=== PATIENT | male | born 1990 | race Hispanic/Latino ===

== ENCOUNTER 2025-02-14 14:33 | Emergency (ER) | payer MEDICARE ==
[~2025-02-14] VITALS: Ht 175.3 cm; Wt 108.9 kg
[2025-02-14 14:54] VITALS: BP 126/84; PULSE 94; RESP 20; TEMP 98.4
--- NOTE | 2025-02-14 16:12 | ERN ---
ED Note History of Present Illness Stated Complaint: ABDOMINAL PAIN Chief Complaint: Abdominal Pain Time Seen by MD: 14:36 Time Seen by Midlevel: 14:36 Dictation: The patient is a 34-year-old male with a history of hypertension, pancreatitis who presents to the emergency department with complaints of epigastric onset today associated with nausea. Patient denies any constipation diarrhea or fevers. Allergies: Coded Allergies: hydromorphone (Unverified Allergy, Intermediate, 02/14/25) morphine (Unverified Allergy, Unknown, 02/14/25) Past Medical History Past Medical History: Hypertension, Pancreatitis Surgical History: None RN Note Reviewed/Agreed w/PFSH: Yes Review of System Dictation Constitutional: Negative for fever,chills, and weight loss Eyes: Negative for injury, pain,redness, and discharge ENT: Negative for injury,pain or swelling Cardiovascular: Negative for chest pain, palpitations, and edema Respiratory: Negative for shortness of breath, cough, and wheezing, Abdomen/GI: Negative for vomiting, diarrhea, and constipation positive for abdominal pain, nausea Back: Negative for injury and pain : Negative for injury, bleeding and discharge MS/Extremity: Negative for injury and deformity Skin: Negative for rash, and discoloration Neuro: Negative for headache, weakness, numbness, tingling, and seizure Psych: Negative for suicide ideation, homicidal ideation, and hallucinations Initial Vital Sign VS Vital Signs Date Time Temp Pulse Resp B/P (MAP) Pulse Ox O2 Delivery O2 Flow Rate FiO2 02/14/25 14:54 98.4 94 20 126/84 99 Room Air 0 Physical Exam Dictation Vital Signs reviewed General Appearance: Alert, oriented x 3, no acute distress, well developed, nourished. Head and Face: non-traumatic. Eyes: PERRL, pink conjunctivas, eyelid no trauma, anterior chamber with arcus senilis. Ears: Pinnas intact and no signs of trauma or erythema ear canals clear and no discharge TM no erythema Nose: No discharge, no bleeding. Oropharynx: Mouth normal, tongue pink. pharynx clear,no erythema, tonsils no exudates, no abscesses noted, mucous membrane moist Neck: Supple, non-tender, no thyromegaly, no masses, no JVD, no bruits Breast:Deferred Chest:No tenderness, no crepitus, no paradoxical movement, no retractions Lungs:Clear, well-ventilated, symmetric, no rales, no wheezing, no rhonchi, no stridor, good breath sounds bilaterally Heart: Regular rate, regular rhythm, no murmur, no gallops Vascular: no peripheral edema, Abdomen: Soft, positive bowel sounds, nondistended, no guarding, nontender, no rebound, no masses no hepatomegaly, no splenomegaly, no Sparks's sign, no hernias. Rectal: Deferred Genital: Deferred Neurological: Normal speech, motor function intact, sensory function intact Musculoskeletal: Neck nontender, full range of motion, back nontender, full range of motion, Extremities: nontender, full range of motion Skin: Color pink, dry, no turgor, no rash, no lacerations, no abrasions, no contusions. Lymphatic: Deferred Results (Laboratory/Radiology) Labs Reviewed?: Yes ED Course ED Course Vital Signs Date Time Temp Pulse Resp B/P (MAP) Pulse Ox O2 Delivery O2 Flow Rate FiO2 02/14/25 14:54 98.4 94 20 126/84 99 Room Air 0 Medical Decision Making MDM The patient is a 34-year-old male with a history of hypertension, pancreatitis who presents to the emergency department with complaints of epigastric onset today associated with nausea. Patient denies any constipation diarrhea or fevers. Differential diagnosis: Gastroenteritis, gastritis, dehydration Patient reported that his pain was better and did not want to be evaluated any further. Risks and benefits discussed with the patient. Patient left AMA. DX & DISP Disposition: AMA Departure Condition: Against Medical Advice Referrals: SELF,REFERRAL (PCP) I have reviewed the case, and I agree with, Diagnosis and Plan MARIS PRIEST Feb 14, 2025 16:12 MARIA DE JESUS GEORGE DO Feb 16, 2025 10:28
== END 2025-02-14 15:13 | disposition left against medical advice (07) ==
LOC: EDH 14:33
DX: R11.0 Nausea (principal); R10.9 Unspecified abdominal pain; I10 Essential (primary) hypertension; Z88.5 Allergy status to narcotic agent
CPT/HCPCS: 99281

== ENCOUNTER 2025-02-24 17:16 | Emergency (ER) | payer MEDICARE ==
[~2025-02-24] VITALS: Ht 175.3 cm; Wt 113.4 kg
--- NOTE | 2025-02-24 17:35 | EKG ---
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
[2025-02-24 17:51] LABS: BASOPHILS # (AUTO) 0.05 K/uL (0.00-0.20); BASOPHILS % (AUTO) 0.9 % (0.0-5.0); EOSINOPHILS # (AUTO) 0.15 K/uL (0.00-0.70); EOSINOPHILS % (AUTO) 2.8 % (0.0-8.0); HEMATOCRIT 45.3 % (42-54); IMMATURE GRANULOCYTE ABSOLUTE 0.04 K/uL (0-1); LYMPHOCYTES # (AUTO) 1.3 K/uL (1.0-4.8); LYMPHOCYTES % (AUTO) 24.3 % (21.0-51.0); MEAN CORPUSCULAR HGB CONC 34.7 g/dL (32.0-36.0); MEAN CORPUSCULAR VOLUME 92.4 fL (79-99); MONOCYTES # (AUTO) 0.6 K/uL (0.1-1.0); MONOCYTES % (AUTO) 10.7 % (3.0-13.0); NEUTROPHILS # (AUTO) 3.3 K/uL (1.8-7.7); NEUTROPHILS % (AUTO) 60.6 % (40.0-77.0); PLATELET COUNT (AUTO) 184 K/uL (130-400); RED CELL DISTRIBUTION WIDTH 12.2 % (11.0-15.5); WHITE BLOOD COUNT (AUTO) 5.4 K/uL (4.8-10.8)
[2025-02-24 18:07] LABS: ALBUMIN 3.9 g/dL (3.5-5.0); BILIRUBIN,DIRECT 0.1 mg/dL (0.0-0.3); BILIRUBIN,TOTAL 0.6 mg/dL (0.2-1.0); POTASSIUM 3.9 mmol/L (3.5-5.1); TOTAL PROTEIN, SERUM 7.1 g/dL (6.0-8.3)
[2025-02-24 18:11] VITALS: BP 141/79; PULSE 78; RESP 18; TEMP 98.3; O2SAT 99
--- NOTE | 2025-02-24 18:24 | ERN ---
General Chief Complaint: Abdominal Pain Stated Complaint: ABD PAIN Time Seen by MD: 17:17 Time Seen by Midlevel: 17:17 Source: patient History of Present Illness Initial Comments Is a 34-year-old male with a past medical history of pancreatitis presenting to the emergency department with midepigastric abdominal pain. Patient states the pain started earlier today. He was an EGD scheduled next week but wanted his lipase level checked because he was concerned he may have pancreatitis at this time. Denies any nausea, vomiting, diarrhea, fever, chills, chest pain, or any other symptoms at this time. Allergies: Coded Allergies: hydromorphone (Unverified Allergy, Intermediate, 02/14/25) iodine (Unverified Allergy, Unknown, 02/24/25) morphine (Unverified Allergy, Unknown, 02/14/25) Past Medical History Past Medical History: Hypertension Medical History Other: pancreatitis Past Surgical History: Cholecystectomy ROS Dictation CONSTITUTIONAL: Negative except for HPI HEAD/FACE: Negative except for HPI EENT: Negative except for HPI RESPIRATORY: Negative except for HPI GASTROINTESTINAL/ABDOMINAL: Negative except for HPI GENITOURINARY: Negative except for HPI MUSCULOSKELETAL: Negative except for HPI INTEGUMENTARY: Negative except for HPI NEUROLOGICAL/PSYCH: Negative except for HPI HEMATOLOGIC/LYMPHATIC: Negative except for HPI All Systems Negative, Except as noted above. 13 point review of systems assessed and all negative except for above. Physical Exam Physical Exam Dictation Vital Signs reviewed General Appearance: Alert, oriented x 3, no acute distress, well developed, nourished. Head and Face: non-traumatic. Eyes: PERRL, pink conjunctivas, eyelid no trauma, anterior chamber with arcus senilis. Ears: Pinnas intact and no signs of trauma or erythema ear canals clear and no discharge TM no erythema Nose: No discharge, no bleeding. Oropharynx: Mouth normal, tongue pink, pharynx clear,no erythema, tonsils no exudates, no abscesses noted, mucous membrane moist Neck: Supple, non-tender, no thyromegaly, no masses, no JVD, no bruits Breast:Deferred Chest:No tenderness, no crepitus, no paradoxical movement, no retractions Lungs:Clear, well-ventilated, symmetric, no rales, no wheezing, no rhonchi, no stridor, good breath sounds bilaterally Heart: Regular rate, regular rhythm, no murmur, no gallops Vascular: no peripheral edema, Abdomen: Soft, positive bowel sounds, nondistended, no guarding, Midepigastric abdominal tenderness, no rebound, no masses no hepatomegaly, no splenomegaly, no Sparks's sign, no hernias. Rectal: Deferred Genital: Deferred Neurological: Normal speech, motor function intact, sensory function intact Musculoskeletal: Neck nontender, full range of motion, back nontender, full range of motion, Extremities: nontender, full range of motion Skin: Color pink, dry, no turgor, no rash, no lacerations, no abrasions, no contusions. Lymphatic: Deferred Results Laboratory and Microbiology Lab and Micro Result Laboratory Tests Test 02/24/25 17:44 White Blood Count 5.4 K/uL (4.8-10.8) Red Blood Count 4.90 MIL/uL (4.50-6.20) Hemoglobin 15.7 g/dL (14.0-18.0) Hematocrit 45.3 % (42-54) Mean Corpuscular Volume 92.4 fL (79-99) Mean Corpuscular Hemoglobin 32.0 pg (27.0-33.0) Mean Corpuscular Hemoglobin Concent 34.7 g/dL (32.0-36.0) Red Cell Distribution Width 12.2 % (11.0-15.5) Platelet Count 184 K/uL (130-400) Mean Platelet Volume 10.9 fL (7.5-10.5) H Immature Granulocyte % (Auto) 0.7 % (0-1) Neutrophils (%) (Auto) 60.6 % (40.0-77.0) Lymphocytes (%) (Auto) 24.3 % (21.0-51.0) Monocytes (%) (Auto) 10.7 % (3.0-13.0) Eosinophils (%) (Auto) 2.8 % (0.0-8.0) Basophils (%) (Auto) 0.9 % (0.0-5.0) Neutrophils # (Auto) 3.3 K/uL (1.8-7.7) Lymphocytes # (Auto) 1.3 K/uL (1.0-4.8) Monocytes # (Auto) 0.6 K/uL (0.1-1.0) Eosinophils # (Auto) 0.15 K/uL (0.00-0.70) Basophils # (Auto) 0.05 K/uL (0.00-0.20) Absolute Immature Granulocyte (auto 0.04 K/uL (0-1) Nucleated Red Blood Cells 0.0 % (0.0-0.19) Sodium Level 148 mmol/L (136-145) H Potassium Level 3.9 mmol/L (3.5-5.1) Chloride Level 110 mmol/L (101-111) Carbon Dioxide Level 29 mmol/L (21-32) Blood Urea Nitrogen 15 mg/dL (7-18) Creatinine 1.0 mg/dL (0.5-1.3) Glomerular Filtration Rate Calc 100 mL/min (>90) Random Glucose 99 mg/dL (70-105) Total Calcium 8.5 mg/dL (8.5-10.1) Total Bilirubin 0.6 mg/dL (0.2-1.0) Direct Bilirubin 0.1 mg/dL (0.0-0.3) Aspartate Amino Transf (AST/SGOT) 23 U/L (10-37) Alanine Aminotransferase (ALT/SGPT) 38 U/L (12-78) Alkaline Phosphatase 110 U/L (50-136) Troponin I High Sensitivity 6 ng/L (4-75) Total Protein 7.1 g/dL (6.0-8.3) Albumin 3.9 g/dL (3.5-5.0) Triglycerides Level 136 mg/dL (30-200) Lipase 111 U/L (16-77) H Labs Reviewed?: Yes MDM MDM: Is a 34-year-old male with a past medical history of pancreatitis presenting to the emergency department with midepigastric abdominal pain. Patient states the pain started earlier today. He was an EGD scheduled next week but wanted his lipase level checked because he was concerned he may have pancreatitis at this time. Denies any nausea, vomiting, diarrhea, fever, chills, chest pain, or any other symptoms at this time. On physical examination patient has mild epigastric abdominal tenderness with no rebound or guarding. Initial vital signs are stable. Abdominal workup was initiated which reveals no leukocytosis. Lipase level was 111 which is stable. Triglycerides are normal. No need for advanced imaging at this time. Labs are unremarkable. Patient will be discharged home with outpatient follow up. Return precautions discussed Differential diagnosis: Pancreatitis, acute cholecystitis, dehydration, electrolyte abnormality There are no social concerns with this patient. Prescription drug management Prescriptions will include: None Medical management and examination interpretation discussions were had by me with other qualified healthcare professionals as indicated for the patient's care. ED Course Orders Procedure Category Date Status Time Cbc With Differential LAB 02/24/25 Complete 17:25 Basic Metabolic Panel LAB 02/24/25 Complete 17:25 Hepatic Function Panel LAB 02/24/25 Complete 17:25 Lipase LAB 02/24/25 Complete 17:25 Triglycerides LAB 02/24/25 Complete 17:25 12 Lead Ekg Tracing- EKG 02/24/25 Complete Technical 17:29 Troponin I High LAB 02/24/25 Complete Sensitivity 17:29 Vital Signs Date Time Temp Pulse Resp B/P (MAP) Pulse Ox O2 Delivery O2 Flow Rate FiO2 02/24/25 18:11 98.2 78 18 141/79 99 Room Air* 0 21 02/24/25 17:25 98.2 80 18 151/84 98 Room Air 0 DX & DISP Disposition: Discharge Departure Impression: Primary Impression: Epigastric abdominal pain Condition: Stable Additional Instructions: Your blood work today is unremarkable. Your lipase level is 111 which is stable. Please follow up with your GI specialist for outpatient EGD. Referrals: BRIT WEBER MD (PCP) Time of Disposition: 18:23 I have reviewed the case, and I agree with, Diagnosis and Plan I performed the substantive portion of the visit. I have reviewed and personally made and approve the management plan that is documented in the note by myself or the KHAI. I acknowledge for responsibility for the patient's management plan. RAYNE COLUNGA Feb 24, 2025 18:24 MARIA DE JESUS GEORGE DO Feb 25, 2025 07:37
== END 2025-02-24 18:31 | disposition home or self-care (01) ==
LOC: EDH 17:16
DX: R10.13 Epigastric pain (principal); I10 Essential (primary) hypertension; Z88.5 Allergy status to narcotic agent; Z88.8 Allergy status to other drugs, medicaments and biological substances; Z90.49 Acquired absence of other specified parts of digestive tract; Z91.041 Radiographic dye allergy status
CPT/HCPCS: 36415; 80048; 80076; 83690; 84478; 84484; 85025; 93005; 99284

== ENCOUNTER 2025-04-07 17:01 | Emergency (ER) | payer MEDICARE ==
[~2025-04-07] VITALS: Ht 175.3 cm; Wt 113.4 kg
--- NOTE | 2025-04-07 17:11 | ERN ---
General Chief Complaint: Shortness of Breath Stated Complaint: SENT BY Time Seen by MD: 17:02 Time Seen by Midlevel: 17:02 Source: patient History of Present Illness Initial Comments Patient is a 34-year-old male with a past medical history of hypertension on lisinopril, and pancreatitis presenting to the emergency department for evaluation of a persistent cough. The patient was sent by his primary care doctor who saw him earlier today and sent him to rule out pneumonia. The p atient reports an increasing cough for the last week. Denies any fever, chills, or any other symptoms at this time. He does report being a smoker and states he recently took up smoking and smokes a proximally 2-3 cigarettes a day. Allergies: Coded Allergies: hydromorphone (Unverified Allergy, Intermediate, 02/14/25) iodine (Unverified Allergy, Unknown, 02/24/25) morphine (Unverified Allergy, Unknown, 02/14/25) Past Medical History Past Medical History: Hypertension, Pancreatitis Medical History Other: pancreatitis Past Surgical History: Cholecystectomy ROS Dictation CONSTITUTIONAL: Negative except for HPI HEAD/FACE: Negative except for HPI EENT: Negative except for HPI RESPIRATORY: Negative except for HPI GASTROINTESTINAL/ABDOMINAL: Negative except for HPI GENITOURINARY: Negative except for HPI MUSCULOSKELETAL: Negative except for HPI INTEGUMENTARY: Negative except for HPI NEUROLOGICAL/PSYCH: Negative except for HPI HEMATOLOGIC/LYMPHATIC: Negative except for HPI All Systems Negative, Except as noted above. 13 point review of systems assessed and all negative except for above. Physical Exam Physical Exam Dictation Vital Signs reviewed General Appearance: Alert, oriented x 3, no acute distress, well developed, nourished. Head and Face: non-traumatic. Eyes: PERRL, pink conjunctivas, eyelid no trauma, anterior chamber with arcus senilis. Ears: Pinnas intact and no signs of trauma or erythema ear canals clear and no discharge TM no erythema Nose: No discharge, no bleeding. Oropharynx: Mouth normal, tongue pink, pharynx clear,no erythema, tonsils no exudates, no abscesses noted, mucous membrane moist Neck: Supple, non-tender, no thyromegaly, no masses, no JVD, no bruits Breast:Deferred Chest:No tenderness, no crepitus, no paradoxical movement, no retractions Lungs:Clear, well-ventilated, symmetric, no rales, no wheezing, no rhonchi, no stridor, good breath sounds bilaterally Heart: Regular rate, regular rhythm, no murmur, no gallops Vascular: no peripheral edema, Abdomen: Soft, positive bowel sounds, nondistended, no guarding, nontender, no rebound, no masses no hepatomegaly, no splenomegaly, no Sparks's sign, no hernias. Rectal: Deferred Genital: Deferred Neurological: Normal speech, motor function intact, sensory function intact Musculoskeletal: Neck nontender, full range of motion, back nontender, full range of motion, Extremities: nontender, full range of motion Skin: Color pink, dry, no turgor, no rash, no lacerations, no abrasions, no contusions. Lymphatic: Deferred Results Laboratory and Microbiology Lab and Micro Result Laboratory Tests Test 04/07/25 17:20 04/07/25 17:32 Influenza Type A Antigen Negative For Type A Influenza Type B Antigen Negative For Type B SARS-CoV-2, RNA, NAAT NEGATIVE SARS CoV-2 White Blood Count 8.6 K/uL (4.8-10.8) Red Blood Count 5.25 MIL/uL (4.50-6.20) Hemoglobin 16.9 g/dL (14.0-18.0) Hematocrit 47.2 % (42-54) Mean Corpuscular Volume 89.9 fL (79-99) Mean Corpuscular Hemoglobin 32.2 pg (27.0-33.0) Mean Corpuscular Hemoglobin Concent 35.8 g/dL (32.0-36.0) Red Cell Distribution Width 12.1 % (11.0-15.5) Platelet Count 224 K/uL (130-400) Mean Platelet Volume 10.6 fL (7.5-10.5) H Immature Granulocyte % (Auto) 1.4 % (0-1) H Neutrophils (%) (Auto) 63.7 % (40.0-77.0) Lymphocytes (%) (Auto) 21.4 % (21.0-51.0) Monocytes (%) (Auto) 12.2 % (3.0-13.0) Eosinophils (%) (Auto) 0.6 % (0.0-8.0) Basophils (%) (Auto) 0.7 % (0.0-5.0) Neutrophils # (Auto) 5.5 K/uL (1.8-7.7) Lymphocytes # (Auto) 1.8 K/uL (1.0-4.8) Monocytes # (Auto) 1.1 K/uL (0.1-1.0) H Eosinophils # (Auto) 0.05 K/uL (0.00-0.70) Basophils # (Auto) 0.06 K/uL (0.00-0.20) Absolute Immature Granulocyte (auto 0.12 K/uL (0-1) Nucleated Red Blood Cells 0.0 % (0.0-0.19) Sodium Level 143 mmol/L (136-145) Potassium Level 3.3 mmol/L (3.5-5.1) L Chloride Level 105 mmol/L (101-111) Carbon Dioxide Level 27 mmol/L (21-32) Blood Urea Nitrogen 22 mg/dL (7-18) H Creatinine 1.4 mg/dL (0.5-1.3) H Glomerular Filtration Rate Calc 67 mL/min (>90) Random Glucose 81 mg/dL (70-105) Total Calcium 8.7 mg/dL (8.5-10.1) Labs Reviewed?: Yes MDM MDM: Patient is a 34-year-old male with a past medical history of hypertension on lisinopril, and pancreatitis presenting to the emergency department for evaluation of a persistent cough. The patient was sent by his primary care doctor who saw him earlier today and sent him to rule out pneumonia. The patient reports an increasing cough for the last week. Denies any fever, chills, or any other symptoms at this time. He does report being a smoker and states he recently took up smoking and smokes a proximally 2-3 cigarettes a day. On physical examination patient is in no acute respiratory distress. Initial vital signs are stable. CBC and chemistries are stable. CBC shows no leukocytosis. Chest x-ray reveals no evidence of focal pneumonia. There is increased interstitial lung markings consistent with acute bronchitis. We will discharged home with supportive management. Differential diagnosis: Pneumonia, acute bronchitis, There are no social concerns with this patient. Prescription drug management Prescriptions will include: Medrol pack Medical management and examination interpretation discussions were had by me with other qualified healthcare professionals as indicated for the patient's care. ED Course Orders Procedure Category Date Status Time Cbc With Differential LAB 5/23/25 Complete 17:09 Basic Metabolic Panel LAB 04/07/25 Complete 17:09 Covid Rna Naat LAB 04/07/25 Complete 17:09 Influenza Type A & B, LAB 04/07/25 Complete Rapid 17:09 Chest 1vw RAD 04/07/25 Resulted 17:09 Vital Signs Date Time Temp Pulse Resp B/P (MAP) Pulse Ox O2 Delivery O2 Flow Rate FiO2 04/07/25 17:36 98.2 96 17 142/93 97 Room Air* 0 21 04/07/25 17:05 103 24 147/90 98 Room Air DX & DISP Disposition: Discharge Departure Impression: Primary Impression: Acute bronchitis Condition: Stable Scripts Benzonatate (Tessalon Perles) 100 Mg Cap 100 MG PO TID for cough, #30 CAP 0 Refills Prov: RAYNE COLUNGA 04/07/25 Methylprednisolone (Medrol) 4 Mg Tab.ds.pk 1 TAB PO AD for 6 Days, #21 TAB 0 Refills 6 on day 1 then reduce by one tablet daily until gone Prov: RAYNE COLUNGA 04/07/25 Additional Instructions: Your chest x-ray does not show any evidence of pneumonia. Please follow up with your primary care doctor in 2-3 days for repeat evaluati on. Return to the ER for any new or worsening symptoms Referrals: BRIT WEBER MD (PCP) Time of Disposition: 18:05 I have reviewed the case, and I agree with, Diagnosis and Plan I performed the substantive portion of the visit. I have reviewed and personally made and approve the management plan that is documented in the note by myself or the KHAI. I acknowledge for responsibility for the patient's management plan. RAYNE COLUNGA April 07, 2025 17:11
[2025-04-07 17:40] LABS: BASOPHILS # (AUTO) 0.06 K/uL (0.00-0.20); BASOPHILS % (AUTO) 0.7 % (0.0-5.0); EOSINOPHILS # (AUTO) 0.05 K/uL (0.00-0.70); EOSINOPHILS % (AUTO) 0.6 % (0.0-8.0); HEMATOCRIT 47.2 % (42-54); IMMATURE GRANULOCYTE ABSOLUTE 0.12 K/uL (0-1); LYMPHOCYTES # (AUTO) 1.8 K/uL (1.0-4.8); LYMPHOCYTES % (AUTO) 21.4 % (21.0-51.0); MEAN CORPUSCULAR HEMOGLOBIN 32.2 pg (27.0-33.0); MEAN CORPUSCULAR HGB CONC 35.8 g/dL (32.0-36.0); MEAN CORPUSCULAR VOLUME 89.9 fL (79-99); MONOCYTES # (AUTO) 1.1 K/uL (0.1-1.0); MONOCYTES % (AUTO) 12.2 % (3.0-13.0); NEUTROPHILS # (AUTO) 5.5 K/uL (1.8-7.7); NEUTROPHILS % (AUTO) 63.7 % (40.0-77.0); PLATELET COUNT (AUTO) 224 K/uL (130-400); RED BLOOD CELL COUNT(AUTO) 5.25 MIL/uL (4.50-6.20); RED CELL DISTRIBUTION WIDTH 12.1 % (11.0-15.5); WHITE BLOOD COUNT (AUTO) 8.6 K/uL (4.8-10.8)
[2025-04-07 17:47] LABS: CREATININE 1.4 mg/dL (0.5-1.3); POTASSIUM 3.3 mmol/L (3.5-5.1)
[2025-04-07 17:51] LABS: SARS-CoV-2, RNA, NAAT NEGATIVE SARS CoV-2 (NEGATIVE)
--- NOTE | 2025-04-07 17:54 | HMCIMG ---
PORTABLE CHEST RADIOGRAPH INDICATION: sob, cough COMPARISON: None FINDINGS: Heart size is normal. The pulmonary vascularity and ernestina appear normal. No abnormal pulmonary parenchymal opacity or consolidation identified. No significant pleural effusion noted. No pneumothorax detected. IMPRESSION: No radiographic evidence for any acute cardiopulmonary process.
[2025-04-07 17:56] LABS: INFLUENZA TYPE A Negative For Type A (NEGATIVE); INFLUENZA TYPE B Negative For Type B (NEGATIVE)
[2025-04-07] MEDS ORDERED: BENZ-39 PO (18:06)
[2025-04-07] MEDS ORDERED: METH4TAB3 PO (18:06)
[2025-04-07] MEDS: dexaMETHasone SOD PHOSPHATE 4 MG/ML 1ML VIAL IM ONE (18:22)
[2025-04-07] MEDS: BENZONATATE 100 MG CAPSULE PO ONE (18:23)
[2025-04-07 18:34] VITALS: BP 128/84; PULSE 96; RESP 17; TEMP 98.2; O2SAT 99
--- NOTE | 2025-04-07 18:37 | NUR ---
patient was dc'd by weston mitchell as per [facility] to give dexamethose iv since patient has line i dc'd patients iv with cath still in place and applied 2x2 gauze with tape i explained to patient to follow up with pcp, take prescritions as directed, and privided info regarding diagnosis, patient ambulated out of ed, no complications
== END 2025-04-07 18:35 | disposition home or self-care (01) ==
LOC: EDH 17:01
DX: J20.9 Acute bronchitis, unspecified (principal); I10 Essential (primary) hypertension; F17.210 Nicotine dependence, cigarettes, uncomplicated; Z20.822 Contact with and (suspected) exposure to COVID-19; Z88.5 Allergy status to narcotic agent; Z88.8 Allergy status to other drugs, medicaments and biological substances; Z90.49 Acquired absence of other specified parts of digestive tract; Z91.041 Radiographic dye allergy status
CPT/HCPCS: 99284; 71045; 87635; 80048; 85025; 87804 ×2; 36415; 96372; J1100

== ENCOUNTER 2025-05-31 17:34 | Emergency (ER) | payer MEDICARE ==
[~2025-05-31] VITALS: Ht 175.3 cm; Wt 111.1 kg
[~2025-05-31 17:34] MED LIST: BENZ-39 PO; METH4TAB3 PO
[2025-05-31 18:21] LABS: APPEARANCE,URINE CLEAR (CLEAR); GLUCOSE, URINE (UA) NEGATIVE (NEGATIVE); LEUKOCYTE ESTERASE ,URINE NEGATIVE Leu/uL (NEGATIVE); NITRATE,URINE NEGATIVE (NEGATIVE); OCCULT BLOOD,URINE NEGATIVE (NEGATIVE)
[2025-05-31 18:22] LABS: IMMATURE GRANULOCYTE ABSOLUTE 0.04 K/uL (0-1); NUCLEATED RED BLOOD CELLS 0.0 % (0.0-0.19); PLATELET COUNT (AUTO) 204 K/uL (130-400); RED BLOOD CELL COUNT(AUTO) 4.77 MIL/uL (4.50-6.20); RED CELL DISTRIBUTION WIDTH 11.9 % (11.0-15.5); WHITE BLOOD COUNT (AUTO) 7.8 K/uL (4.8-10.8)
[2025-05-31 18:27] LABS: CREATININE 1.0 mg/dL (0.5-1.3); GLOMERULAR FILTR. RATE CALC 100.0 mL/min (>90); GLUCOSE,RANDOM 97.0 mg/dL (70-105); SODIUM SERUM 143.0 mmol/L (136-145); UREA NITROGEN, BLOOD 18.0 mg/dL (7-18)
[2025-05-31 18:35] LABS: ASPARTATE AMINOTRANSFERASE 22.0 U/L (10-37); TOTAL PROTEIN, SERUM 7.0 g/dL (6.0-8.3)
--- NOTE | 2025-05-31 19:15 | NUR ---
PT CARE ASSUMED AT THIS TIME
[2025-05-31] MEDS ORDERED: IOHEXOL-350 75 ML VIAL IV ONE (19:17)
[2025-05-31] MEDS: LIDOCAINE HCL 2% VISCOUS 15 ML UDCUP PO ONE (19:48)
[2025-05-31] MEDS: MAG/ALUM/SIMETH 30 ML UDCUP PO ONE (19:48)
--- NOTE | 2025-05-31 20:16 | HMCIMG ---
EXAMINATION: CT Abdomen and Pelvis Without IV contrast CLINICAL HISTORY: Patient presents with mid and epigastric abdominal pain. TECHNIQUE: Axial computed tomography images of the abdomen and pelvis without intravenous contrast. CONTRAST: No IV contrast. COMPARISON: None provided. FINDINGS: LUNG BASES: The lung bases are clear. No pleural effusions. LIVER: The liver is unremarkable. GALLBLADDER AND BILE DUCTS: The gallbladder is surgically absent. No biliary ductal dilatation. PANCREAS: The pancreas is unremarkable. SPLEEN: The spleen is unremarkable. ADRENAL GLANDS: The adrenal glands are unremarkable. KIDNEYS, URETERS, AND BLADDER: The kidneys are within normal limits. No hydronephrosis or hydroureter. No urinary calculi. STOMACH AND BOWEL: The stomach and bowel demonstrate unremarkable appearance. No bowel obstruction. No findings suggestive of enteritis or colitis. APPENDIX: Normal appendix. PERITONEUM: No free fluid. No free air. LYMPH NODES: No lymphadenopathy. REPRODUCTIVE: The prostate and seminal vesicles are normal. VASCULATURE: No evidence of abdominal aortic aneurysm. BONES: No aggressive appearing osseous lesion. No acute osseous abnormality. IMPRESSION: No acute intra-abdominal or pelvic abnormality. /Hope
[2025-05-31] MEDS: DICYCLOMINE 20MG (10MG/ML) AMP IM ONE (21:05)
--- NOTE | 2025-05-31 21:31 | ERN ---
General Chief Complaint: Abdominal Pain Stated Complaint: ABD PAIN Time Seen by MD: 17:34 Time Seen by Midlevel: 17:34 Source: patient History of Present Illness Initial Comments 34-year-old male who presents to the emergency department due to abdominal pain onset today. Patient states he has a history of pancreatitis last time he was seen by GI was four years ago. Patient is supposed to follow up with GI in [place] however his flights have been canceled multiple times. Denies any vomiting, diarrhea, constipation, chest pain or further associated symptoms. Surgical history of cholecystectomy. PMHx HTN, GERD Allergies: Coded Allergies: hydromorphone (Unverified Allergy, Intermediate, 02/14/25) iodine (Unverified Allergy, Unknown, 02/24/25) morphine (Unverified Allergy, Unknown, 02/14/25) Home Meds Active Scripts Benzonatate (Tessalon Perles) 100 Mg Cap, 100 MG PO TID for cough, #30 CAP 0 Refills Prov:RAYNE COLUNGA 04/07/25 Methylprednisolone (Medrol) 4 Mg Tab.ds.pk, 1 TAB PO AD for 6 Days, #21 TAB 0 Refills 6 on day 1 then reduce by one tablet daily until gone Prov:RAYNE COLUNGA 04/07/25 Past Medical History Past Medical History: Hypertension, Pancreatitis Medical History Other: pancreatitis Past Surgical History: Cholecystectomy ROS Dictation Constitutional: Negative for fever,chills, and weight loss Eyes: Negative for injury, pain,redness, and discharge ENT: Negative for injury,pain or swelling Cardiovascular: Negative for chest pain, palpitations, and edema Respiratory: Negative for shortness of breath, cough, and wheezing, Abdomen/GI: Positive for epigastric abdominal pain Negative for nausea, vomiting, diarrhea, and constipation Back: Negative for injury and pain : Negative for painful urination, bleeding or discharge MS/Extremity: Negative for injury and deformity Skin: Negative for rash, and discoloration Neuro: Negative for headache, weakness, numbness, tingling, and seizure Psych: Negative for suicide ideation, homicidal ideation, and hallucinations Physical Exam Physical Exam Dictation General: awake, alert, no acute distress Head/Face: Normocephalic, atraumatic Eyes: PERRL, EOMI, normal conjunctiva ENT: oral cavity clear, oral mucosa moist Neck: Supple, normal range of motion Cardiovascular: RRR, normal S1/S2 Respiratory: CTAB, no respiratory distress, no rales or wheezes Abdomen: Soft, mild epigastric tenderness, non-distended, no guarding or rebound. Skin: Warm, dry, normal turgor, no rash MS/Extremity: Pulses equal, no cyanosis, neurovascular intact, FROM Neuro: COAx4, GCS 15, strength 5/5, CN 2-12 intact, normal cerebellar exam, normal gait Psych: Normal behavior, mood, and affect normal Results Laboratory and Microbiology Lab and Micro Result Laboratory Tests Test 05/31/25 18:11 05/31/25 18:15 White Blood Count 7.8 K/uL (4.8-10.8) Red Blood Count 4.77 MIL/uL (4.50-6.20) Hemoglobin 15.2 g/dL (14.0-18.0) Hematocrit 42.3 % (42-54) Mean Corpuscular Volume 88.7 fL (79-99) Mean Corpuscular Hemoglobin 31.9 pg (27.0-33.0) Mean Corpuscular Hemoglobin Concent 35.9 g/dL (32.0-36.0) Red Cell Distribution Width 11.9 % (11.0-15.5) Platelet Count 204 K/uL (130-400) Mean Platelet Volume 10.9 fL (7.5-10.5) H Immature Granulocyte % (Auto) 0.5 % (0-1) Neutrophils (%) (Auto) 65.8 % (40.0-77.0) Lymphocytes (%) (Auto) 21.3 % (21.0-51.0) Monocytes (%) (Auto) 8.6 % (3.0-13.0) Eosinophils (%) (Auto) 2.8 % (0.0-8.0) Basophils (%) (Auto) 1.0 % (0.0-5.0) Neutrophils # (Auto) 5.1 K/uL (1.8-7.7) Lymphocytes # (Auto) 1.7 K/uL (1.0-4.8) Monocytes # (Auto) 0.7 K/uL (0.1-1.0) Eosinophils # (Auto) 0.22 K/uL (0.00-0.70) Basophils # (Auto) 0.08 K/uL (0.00-0.20) Absolute Immature Granulocyte (auto 0.04 K/uL (0-1) Nucleated Red Blood Cells 0.0 % (0.0-0.19) Sodium Level 143 mmol/L (136-145) Potassium Level 3.6 mmol/L (3.5-5.1) Chloride Level 107 mmol/L (101-111) Carbon Dioxide Level 30 mmol/L (21-32) Blood Urea Nitrogen 18 mg/dL (7-18) Creatinine 1.0 mg/dL (0.5-1.3) Glomerular Filtration Rate Calc 100 mL/min (>90) Random Glucose 97 mg/dL (70-105) Total Calcium 8.3 mg/dL (8.5-10.1) L Total Bilirubin 0.8 mg/dL (0.2-1.0) Direct Bilirubin 0.2 mg/dL (0.0-0.3) Aspartate Amino Transf (AST/SGOT) 22 U/L (10-37) Alanine Aminotransferase (ALT/SGPT) 38 U/L (12-78) Alkaline Phosphatase 100 U/L (50-136) Troponin I High Sensitivity 7 ng/L (4-75) Total Protein 7.0 g/dL (6.0-8.3) Albumin 3.9 g/dL (3.5-5.0) Lipase 104 U/L (16-77) H Urine Color LIGHT-YELLOW (YELLOW) Urine Appearance CLEAR (CLEAR) Urine pH 5.5 (5.0-8.0) Urine Specific [place] 1.025 (1.001-1.031) Urine Protein NEGATIVE mg/dL (NEGATIVE) Urine Glucose (UA) NEGATIVE mg/dL (NEGATIVE) Urine Ketones NEGATIVE mg/dL (NEGATIVE) Urine Occult Blood NEGATIVE (NEGATIVE) Urine Nitrate NEGATIVE (NEGATIVE) Urine Bilirubin NEGATIVE mg/dL (NEGATIVE) Urine Urobilinogen 0.2 mg/dL (0.2-1.0) Urine Leukocyte Esterase NEGATIVE Joni/uL Urine RBC 0-1 /HPF (0-1) Urine WBC 0-1 /HPF (0-1) Urine Bacteria RARE /HPF (None Seen) Labs Reviewed?: Yes EKG/XRAY/US/CT/MRI EKG Comment Date: 05/31/2025 Time: 1942 Rate: 68 EKG interpretation: Sinus rhythm, no STEMI Reviewed by ED Attending CT Scan Comment REASON: abdominal pain mid/ epigastric ORDERING PHYSICIAN: COLLIN VENTURA PROCEDURE: ABD PEL WO - CT ABDOMEN/PELVIS W/O CONTRAST EXAMINATION: CT Abdomen and Pelvis Without IV contrast CLINICAL HISTORY: Patient presents with mid and epigastric abdominal pain. TECHNIQUE: Axial computed tomography images of the abdomen and pelvis without intravenous contrast. CONTRAST: No IV contrast. COMPARISON: None provided. FINDINGS: LUNG BASES: The lung bases are clear. No pleural effusions. LIVER: The liver is unremarkable. GALLBLADDER AND BILE DUCTS: The gallbladder is surgically absent. No biliary ductal dilatation. PANCREAS: The pancreas is unremarkable. SPLEEN: The spleen is unremarkable. ADRENAL GLANDS: The adrenal glands are unremarkable. KIDNEYS, URETERS, AND BLADDER: The kidneys are within normal limits. No hydronephrosis or hydroureter. No urinary calculi. STOMACH AND BOWEL: The stomach and bowel demonstrate unremarkable appearance. No bowel obstruction. No findings suggestive of enteritis or colitis. APPENDIX: Normal appendix. PERITONEUM: No free fluid. No free air. LYMPH NODES: No lymphadenopathy. REPRODUCTIVE: The prostate and seminal vesicles are normal. VASCULATURE: No evidence of abdominal aortic aneurysm. BONES: No aggressive appearing osseous lesion. No acute osseous abnormality. IMPRESSION: No acute intra-abdominal or pelvic abnormality. /[place] DICTATED BY: DOMINIK CAPUTO MD DATE: 05/31/252115 [facility] MDM: Differential diagnosis: Gastritis, pancreatitis, acid reflux Rationale: 34-year-old male who presents to the emergency department due to abdominal pain onset today. Patient states he has a history of pancreatitis last time he was seen by GI was four years ago. Patient is supposed to follow up with GI in [place] however his flights have been canceled multiple times. Denies any vomiting, diarrhea, constipation, chest pain or further associated symptoms. Surgical history of cholecystectomy. PMHx HTN, GERD Labs obtained CBC is nonspecific. Lipase 104 otherwise LFTs within normal limits. UA negative for urinary tract infection. CT abdomen and pelvis obtained with no acute intra-abdominal or pelvic abnormalities. Zofran, and GI cocktail administered. On re-examination patient verbalized pain had resolved but requested dicyclomine due to generalized body itchiness. Patient was educated on findings and diagnosis. Advised to follow up with PCP. Return to the emergency department if any worsening symptoms. Patient verbalized understanding. Patient stable for discharge. There are no social concerns with this patient. I independently interpreted the test that were performed, results were reviewed by me and considered findings on radiology if ordered. Medical management and examination interpretation discussions were had by me with other qualified healthcare professionals as indicated for the patient's care. ED Course Orders Procedure Category Date Status Time Cbc With Differential LAB 05/31/25 Complete 18:01 Basic Metabolic Panel LAB 05/31/25 Complete 18:01 Hepatic Function Panel LAB 05/31/25 Complete 18:01 Lipase LAB 05/31/25 Complete 18:01 Urinalysis LAB 05/31/25 Complete W/Microscopic 18:01 12 Lead Ekg Tracing- EKG 05/31/25 Logged Technical 18:01 Troponin I High LAB 05/31/25 Complete Sensitivity 18:01 Mag/Alum/Simeth 30ml PHA 05/31/25 Complete (Maalox Plus 30ml) 18:30 Lidocaine Hcl 2% PHA 05/31/25 Complete Viscous (Lidocaine Hcl 18:30 Pantoprazole 40mg Tab PHA 05/31/25 Complete (Protonix 40mg Tab 18:30 Iohexol (Omnipaque) PHA 05/31/25 Complete 19:17 Ct Abdomen/Pelvis W/O CT 05/31/25 Resulted Contrast 19:47 Diphenhydramine Hcl PHA 05/31/25 Complete (Benadryl Inj) 21:00 Ondansetron 4mg Inj PHA 05/31/25 Complete (Zofran 4mg Inj) 21:00 Dicyclomine Hcl PHA 05/31/25 Complete (Bentyl 20mg Inj) 21:00 Current Medications Medications (Trade) Dose Ordered Sig/Crystal Route PRN Reason Start Time Stop Time Status Last Admin Dose Admin Al Hydroxide/Mg Hydroxide (MAALox PLUS 30ML) 30 ml ONCE ONCE PO 05/31/25 18:30 05/31/25 18:31 DC 05/31/25 19:48 Dicyclomine HCl (Bentyl 20mg Inj) 10 mg ONCE ONCE IM 05/31/25 21:00 05/31/25 21:01 DC 05/31/25 21:05 Diphenhydramine HCl (BENAdryl INJ) 25 mg ONCE ONCE IV 05/31/25 21:00 05/31/25 21:01 DC 05/31/25 21:06 Iohexol (Omnipaque) 75 ml STK-MED ONCE IV 05/31/25 19:17 05/31/25 19:22 DC Lidocaine HCl (Lidocaine HCl 2% Viscous) 10 ml ONCE ONCE PO 05/31/25 18:30 05/31/25 18:31 DC 05/31/25 19:48 Ondansetron HCl (zoFRAN 4MG INJ) 4 mg ONCE ONCE IVP 05/31/25 21:00 05/31/25 21:01 DC 05/31/25 21:03 Pantoprazole Sodium (PROTonix 40MG TAB) 40 mg ONCE ONCE PO 05/31/25 18:30 05/31/25 18:31 DC 05/31/25 19:48 Vital Signs Date Time Temp Pulse Resp B/P (MAP) Pulse Ox O2 Delivery O2 Flow Rate FiO2 05/31/25 21:45 98.2 75 16 132/66 98 Room Air* 0 05/31/25 20:46 74 15 127/82 100 Room Air* 0 05/31/25 19:33 98.2 71 16 119/72 100 Room Air* 0 05/31/25 17:42 98.8 90 18 136/85 96 Room Air DX & DISP Disposition: Discharge Departure Impression: Primary Impression: Epigastric abdominal pain Condition: Stable Additional Instructions: Discharge home. Rest. Follow up with primary care DrAmbreen in 24 hours. Return to the ER for any acute changes or worsening symptoms. If any medications were prescribed take as directed. Okay to continue home medications unless otherwise discussed during your visit in the emergency room today. Patient was also advised to follow-up with primary care physician in 1 to 2 days for continued monitoring. Referrals: BRIT WEBER MD (PCP) I performed the substantive portion of the visit. I have reviewed and personal ly made and approve the management plan that is documented in the notes by myself or the [facility]. I acknowledge full responsibility for the patient's management plan. COLLIN VENTURA May 31, 2025 21:31
[2025-05-31 21:45] VITALS: BP 132/66; PULSE 75; RESP 16; TEMP 98.2; O2SAT 98
--- NOTE | 2025-06-01 07:19 | EKG ---
[facility] Test Date: 2025-05-31 Test Time: 19:43:45 Pat Name: DEVEN HEAD Department: ED Room: Gender: M Rehabilitation Psychologist: [id number] : 1990 Requested By: COLLIN VENTURA Order Number: [id number] Reading MD: Dania Chen Measurements Intervals [place] Rate: 68 P: 48 [place]: 172 QRS: 6 QRSD: 98 T: 4 QT: 385 QTc: 410 Interpretive Statements Sinus rhythm Compared to ECG 02/24/2025 17:33:33 No significant changes Electronically Signed On 06-02-2025 08:00:44 CDT by Dania Chen Please click the below link to view image of tracing.
== END 2025-05-31 21:46 | disposition home or self-care (01) ==
LOC: EDH 17:34
DX: R10.13 Epigastric pain (principal); I10 Essential (primary) hypertension; Z88.5 Allergy status to narcotic agent; Z88.8 Allergy status to other drugs, medicaments and biological substances; Z90.49 Acquired absence of other specified parts of digestive tract
CPT/HCPCS: 99285; 74176; 96374; 96375; 80076; 84484; 80048; 83690; 85025; 81001; 36415; 93005; 96372; J1200; J2405; J0500; Q9967